=== PATIENT | female | born 1960 | race African-American/Black ===

== ENCOUNTER 2018-12-16 00:50 | Emergency (ER) | payer MEDICAID ==
[~2018-12-16] VITALS: Ht 170.2 cm; Wt 65.0 kg
[2018-12-16] MEDS ORDERED: KETOROLAC 30MG/ML VIAL IV STA (01:27)
[2018-12-16] MEDS ORDERED: METOCLOPRAMIDE HCL 10MG/2ML VIAL IV STA (01:27)
[2018-12-16] MEDS ORDERED: FAMOTIDINE 20MG/2ML VIAL IV STA (01:27)
[2018-12-16 02:12] LABS: HEMOGLOBIN. 10.5 g/dL (12.0-16.0); RED BLOOD CELL COUNT 3.44 mill/uL (4.2-5.4)
[2018-12-16 02:13] LABS: HEMATOCRIT. 29.6 % (36.0-48.0); MEAN CORPUSCULAR HEMOGLOBIN 30.5 pg (28.0-32.0); MEAN CORPUSCULAR VOLUME 85.9 fL (81.0-99.0)
[2018-12-16 02:14] LABS: MEAN PLATELET VOLUME 8.2 fl (7.4-10.4); PLATELET 220 x1000/uL (130-400); RED CELL DISTRIBUTION WIDTH 16.5 % (11.6-14.6)
[2018-12-16 02:27] LABS: CHLORIDE 103 mEq/L (98-107)
[2018-12-16 02:52] LABS: PLATELET ESTIMATE NORMAL
[2018-12-16] MEDS ORDERED: MAGNESIUM/ALUMINUM HYDROXIDE/SIMETHICONE 30ML UDC PO SCH (03:00)
[2018-12-16] MEDS ORDERED: VISCOUS LIDOCAINE 2% 15 ML UDC MM SCH (03:05)
[2018-12-16 03:11] LABS: CLARITY URINE CLOUDY (CLEAR); COLOR URINE YELLOW (YELLOW); KETONES URINE NEGATIVE (NEGATIVE); LEUKOCYTE ESTERASE URINE 2+ (NEGATIVE); NITRITE URINE POSITIVE (NEGATIVE); OCCULT BLOOD URINE 3+ (NEGATIVE); PROTEIN URINE NEGATIVE (NEGATIVE); SPECIFIC GRAVITY URINE 1.007 (1.005-1.030); UROBILINOGEN URINE 0.2 E.U./dL (0.2-1.0)
[2018-12-16] MEDS ORDERED: CEFTRIAXONE 1 G PREMIX 50 ML IV SCH (05:00)
[2018-12-16] MEDS ORDERED: ACETAMINOPHEN 500MG TABLET PO ONE (05:45)
[2018-12-16 05:56] VITALS: BP 171/104
== END 2018-12-16 05:56 | disposition home or self-care (01) ==
LOC: EDBEDREQ 01:28 → ER 01:40 → CANBEDREQ 06:53
DX: N39.0 Urinary tract infection, site not specified (principal); J45.909 Unspecified asthma, uncomplicated; E78.00 Pure hypercholesterolemia, unspecified; I10 Essential (primary) hypertension; Z88.0 Allergy status to penicillin
CPT/HCPCS: 36415; 80053; 81003; 83690; 85025; 87077; 87086; 87186; 96365; 96375; 99284; J0696; J1885; J2765; J3490

== ENCOUNTER 2021-12-03 04:05 | Inpatient (IN) | payer MEDICAID ==
[~2021-12-03] VITALS: Ht 180.3 cm; Wt 62.7 kg
[~2021-12-03 04:05] MED LIST: ALBU6.7H9 INH; ATOR20TA65 PO; BENA10TA74 PO; ERGO400T7 MT; FOLI-43 PO; HYDR25TA PO; SIMV-43 PO
[2021-12-03] MEDS ORDERED: ONDANSETRON HCL 4MG/2ML INJ IV STA (04:28)
[2021-12-03] MEDS ORDERED: FAMOTIDINE 20MG/2ML VIAL IV STA (04:28)
[2021-12-03] MEDS ORDERED: KETOROLAC 30MG/ML VIAL IV STA (04:28)
[2021-12-03] MEDS ORDERED: SODIUM CHLORIDE 0.9% 1,000 ML IV ONE (04:30)
[2021-12-03 05:26] LABS: CHLORIDE 90 mEq/L (98-107)
[2021-12-03 05:33] LABS: HEMATOCRIT. 37.8 % (36.0-48.0); HEMOGLOBIN. 13.7 g/dL (12.0-16.0); MEAN CORPUSCULAR HEMOGLOBIN 30.8 pg (28.0-32.0); MEAN CORPUSCULAR VOLUME 85.2 fL (81.0-99.0); MEAN PLATELET VOLUME 8.4 fl (7.4-10.4); PLATELET 298 x1000/uL (130-400); RED BLOOD CELL COUNT 4.43 mill/uL (4.2-5.4); RED CELL DISTRIBUTION WIDTH 16.7 % (11.6-14.6)
[2021-12-03 07:09] LABS: NUCLEATED RED BLOOD CELLS 1 /100 WBC; PLATELET ESTIMATE NORMAL
[2021-12-03] MEDS ORDERED: IOHEXOL-300 100 ML BOTTLE ONE (07:16)
[2021-12-03 08:08] LABS: CLARITY URINE CLEAR (CLEAR); COLOR URINE YELLOW (YELLOW); KETONES URINE TRACE (NEGATIVE); LEUKOCYTE ESTERASE URINE 1+ (NEGATIVE); NITRITE URINE NEGATIVE (NEGATIVE); OCCULT BLOOD URINE NEGATIVE (NEGATIVE); PROTEIN URINE NEGATIVE (NEGATIVE); SPECIFIC GRAVITY URINE 1.031 (1.005-1.030); UROBILINOGEN URINE 0.2 E.U./dL (0.2-1.0)
[2021-12-03] MEDS ORDERED: MORPHINE SULFATE 4 MG/ML CPJ (NOT FOR IM USE) IV ONE (09:00)
[2021-12-03] MEDS ORDERED: CEFTRIAXONE 1 G PREMIX 50 ML IV ONE (09:15)
[2021-12-03] MEDS ORDERED: ACETAMINOPHEN 325MG TABLET PO PRN (14:00)
[2021-12-03] MEDS ORDERED: KETOROLAC 30MG/ML VIAL IV PRN (14:00)
[2021-12-03] MEDS ORDERED: ONDANSETRON HCL 4MG/2ML INJ IV PRN (14:00)
[2021-12-03] MEDS ORDERED: KETOROLAC 15MG/ML VIAL IV PRN (14:52)
[2021-12-03] MEDS ORDERED: NALOXONE HCL 0.4MG/ML VIAL IV PRN (15:00)
[2021-12-03] MEDS: HYDROCODONE/ACETAMINOPHEN 5/325MG TABLET PO PRN ×2 (15:57→22:48)
[2021-12-03] MEDS: SODIUM CHLORIDE 0.9% 1,000 ML IV SCH (15:58)
[2021-12-03 23:30] VITALS: BP 137/91
[2021-12-04] VITALS: BP 137/91
[2021-12-04] MEDS ORDERED: TOPUD PO
[2021-12-04] MEDS ORDERED: GEMF600T90 PO
[2021-12-04] MEDS ORDERED: MELO-104 PO
[2021-12-04] MEDS ORDERED: HYDR25TA PO
[2021-12-04] MEDS ORDERED: NAPR375T5 PO
[2021-12-04] MEDS ORDERED: OMEP20TA2 PO
[2021-12-04] MEDS: SODIUM CHLORIDE 0.9% 1,000 ML IV SCH ×3 (00:12→20:50)
[2021-12-04 04:00] VITALS: BP 142/79
[2021-12-04 07:32] LABS: BASOPHILS % 0.5 % (0.0-2.0); EOSINOPHILS % 1.9 % (0.0-5.0); HEMATOCRIT. 31.3 % (36.0-48.0); HEMOGLOBIN. 11.3 g/dL (12.0-16.0); LYMPHOCYTES % 16.7 % (20.0-50.0); MEAN CORPUSCULAR HEMOGLOBIN 30.4 pg (28.0-32.0); MEAN CORPUSCULAR VOLUME 84.7 fL (81.0-99.0); MEAN PLATELET VOLUME 8.1 fl (7.4-10.4); MONOCYTES % 4.3 % (2.0-8.0); NEUTROPHILS % 76.6 % (40.0-76.0); PLATELET 183 x1000/uL (130-400); PROTHROMBIN TIME 10.8 sec (9.6-11.0); RED CELL DISTRIBUTION WIDTH 16.2 % (11.6-14.6)
[2021-12-04 07:41] LABS: CHLORIDE 105 mEq/L (98-107)
[2021-12-04 07:45] LABS: AMYLASE 71 IU/L (25-115)
[2021-12-04 08:00] VITALS: BP 145/94
[2021-12-04 09:13] LABS: HEPATITIS B SURFACE ANTIGEN NEGATIVE
[2021-12-04] MEDS: KCL 20MEQ/100ML PREMIX 100 ML IV SCH ×2 (11:00→13:00)
[2021-12-04 12:00] VITALS: BP 135/94
[2021-12-04] MEDS ORDERED: PROPOFOL 200MG/20ML VIAL IV ONE ×2 (13:38→14:09)
[2021-12-04] MEDS ORDERED: FENTANYL CITRATE/PF 50MCG/ML 2ML VIAL ONE (13:38)
[2021-12-04] MEDS ORDERED: MIDAZOLAM HCL 2 MG/2 ML VIAL ONE (13:39)
[2021-12-04] MEDS ORDERED: ONDANSETRON HCL 4MG/2ML INJ ONE (13:41)
[2021-12-04] MEDS ORDERED: DEXAMETHASONE 4MG/ML 1ML VIAL ONE (13:41)
[2021-12-04] MEDS ORDERED: MEPERIDINE HCL/PF 25MG/ML CPJ IV PRN (14:30)
[2021-12-04] MEDS ORDERED: LABETALOL 5MG/ML SYR 20 MG/4 ML SYRINGE IV PRN (14:30)
[2021-12-04] MEDS ORDERED: HYDROMORPHONE HCL/PF 2MG/ML CPJ IV PRN (14:30)
[2021-12-04] MEDS ORDERED: ONDANSETRON HCL 4MG/2ML INJ IV PRN (14:30)
[2021-12-04] MEDS ORDERED: GENTAMICIN 80MG PREMIX 100 ML IV SCH (14:30)
[2021-12-04 16:00] VITALS: BP 123/77
[2021-12-04] MEDS ORDERED: GENTAMICIN 120MG PREMIX 100 ML IV SCH (16:30)
[2021-12-04] MEDS: HYDROCODONE/ACETAMINOPHEN 5/325MG TABLET PO PRN (18:30)
[2021-12-04 18:57] LABS: *AMPHETAMINES SCREEN URINE NEGATIVE (NEGATIVE); *BARBITURATES SCREEN URINE NEGATIVE (NEGATIVE); *BENZODIAZEPINES SCREEN URINE PRESUMTIVE POSITIVE (NEGATIVE); *COCAINE SCREEN URINE NEGATIVE (NEGATIVE); METHADONE URINE SCREEN NEGATIVE (NEGATIVE); OPIATES URINE SCREEN PRESUMTIVE POSITIVE (NEGATIVE); PHENCYCLIDINE URINE SCREEN NEGATIVE (NEGATIVE)
[2021-12-04 18:58] LABS: CANNABINOID URINE SCREEN NEGATIVE (NEGATIVE)
[2021-12-04 20:00] VITALS: BP 121/81
[2021-12-04] MEDS ORDERED: CARISOPRODOL 350 MG TABLET PO PRN (23:00)
[2021-12-05] VITALS: BP 118/73
[2021-12-05 04:00] VITALS: BP 144/73
[2021-12-05] MEDS ORDERED: GENTAMICIN 100MG PREMIX 50 ML IV SCH (05:00)
[2021-12-05] MEDS: SODIUM CHLORIDE 0.9% 1,000 ML IV SCH (05:19)
[2021-12-05 06:35] LABS: BASOPHILS % 0.4 % (0.0-2.0); HEMATOCRIT. 28.8 % (36.0-48.0); MEAN CORPUSCULAR HEMOGLOBIN 30.4 pg (28.0-32.0); MEAN CORPUSCULAR VOLUME 87.3 fL (81.0-99.0); MEAN PLATELET VOLUME 8.5 fl (7.4-10.4); NEUTROPHILS % 87.6 % (40.0-76.0); PLATELET 149 x1000/uL (130-400); RED CELL DISTRIBUTION WIDTH 16.2 % (11.6-14.6)
[2021-12-05 06:45] LABS: CHLORIDE 107 mEq/L (98-107)
[2021-12-05 06:54] LABS: AMYLASE 76 IU/L (25-115)
[2021-12-05 08:00] VITALS: BP 166/98
[2021-12-05] MEDS: HYDROCODONE/ACETAMINOPHEN 5/325MG TABLET PO PRN (08:25)
[2021-12-05] MEDS ORDERED: AMLODIPINE 10MG TABLET PO SCH (09:00)
[2021-12-05 12:00] VITALS: BP 147/100
[2021-12-05 13:47] VITALS: BP 18/147
== END 2021-12-05 14:20 | disposition home or self-care (01) | DRG 463 ==
LOC: ER 04:05 → EDBEDREQTM 08:45 → EDBEDREQ 08:45 → 7EST 09:08 → EDBEDREQTM 09:10 → EDBEDREQ 09:10 → ENRESERV 21:55
PROVIDERS: ADMIT Internal Medicine; ATTEND Internal Medicine
PROC: 0TF78ZZ Fragmentation in Left Ureter, Via Natural or Artificial Opening Endoscopic (ICD-10-PCS; principal; 2021-12-04)
PROC: 0T778DZ Dilation of Left Ureter with Intraluminal Device, Via Natural or Artificial Opening Endoscopic (ICD-10-PCS; 2021-12-04)
PROC: BT171ZZ Fluoroscopy of Left Ureter using Low Osmolar Contrast (ICD-10-PCS; 2021-12-04)
DX: N13.6 Pyonephrosis (principal); K85.20 Alcohol induced acute pancreatitis without necrosis or infection; E87.8 Other disorders of electrolyte and fluid balance, not elsewhere classified; E87.1 Hypo-osmolality and hyponatremia; I10 Essential (primary) hypertension; J45.909 Unspecified asthma, uncomplicated; K82.8 Other specified diseases of gallbladder; Z20.822 Contact with and (suspected) exposure to COVID-19; D64.9 Anemia, unspecified; F10.10 Alcohol abuse, uncomplicated; Y90.9 Presence of alcohol in blood, level not specified; M06.9 Rheumatoid arthritis, unspecified; D25.9 Leiomyoma of uterus, unspecified; E78.5 Hyperlipidemia, unspecified; K76.0 Fatty (change of) liver, not elsewhere classified; Z87.891 Personal history of nicotine dependence; Z88.0 Allergy status to penicillin; Z79.899 Other long term (current) drug therapy
CPT/HCPCS: 36415; 74018; 74177; 76000; 76700; 80048; 80053; 80076; 80305; 81003; 82150; 85025; 86705; 86709; 86803; 87340; 87426; 93005; 99285; C1769; C2617; J0696; J1100; J1580; J1885; J2250; J2270; J2405; J2704; J3010; J3480; J3490; J7030; Q9967

== ENCOUNTER 2022-06-11 19:54 | Inpatient (IN) | payer MEDICAID ==
[~2022-06-11] VITALS: Ht 177.8 cm; Wt 60.1 kg
[~2022-06-11 19:54] MED LIST changes: +ALBU6.7H3 INH; -ALBU6.7H9 INH; -BENA10TA74 PO; +BENA40TA91 PO; +GEMF600T90 PO; +LEVO-65 MT; +MELO-104 PO; +NAPR375T5 PO; +OMEP20TA23 PO; +TOPUD PO
[2022-06-11] MEDS ORDERED: SODIUM CHLORIDE 0.9% 1,000 ML IV ONE (20:45)
[2022-06-11 20:58] LABS: HEMATOCRIT. 31.7 % (36.0-48.0); MEAN CORPUSCULAR HEMOGLOBIN 32.9 pg (28.0-32.0); MEAN CORPUSCULAR VOLUME 86.7 fL (81.0-99.0); MEAN PLATELET VOLUME 8.6 fl (7.4-10.4); PLATELET 370 x1000/uL (130-400); RED BLOOD CELL COUNT 3.66 mill/uL (4.2-5.4); RED CELL DISTRIBUTION WIDTH 17.9 % (11.6-14.6)
[2022-06-11 21:02] LABS: CHLORIDE 60 mEq/L (98-107)
[2022-06-11 21:13] LABS: ETHANOL BLOOD < 10 mg/dL
[2022-06-11 21:17] LABS: *AMPHETAMINES SCREEN URINE NEGATIVE (NEGATIVE); *BARBITURATES SCREEN URINE NEGATIVE (NEGATIVE); *BENZODIAZEPINES SCREEN URINE NEGATIVE (NEGATIVE); *COCAINE SCREEN URINE NEGATIVE (NEGATIVE); CANNABINOID URINE SCREEN NEGATIVE (NEGATIVE); METHADONE URINE SCREEN NEGATIVE (NEGATIVE); OPIATES URINE SCREEN NEGATIVE (NEGATIVE); PHENCYCLIDINE URINE SCREEN NEGATIVE (NEGATIVE)
[2022-06-11 21:21] LABS: CLARITY URINE CLEAR (CLEAR); COLOR URINE YELLOW (YELLOW)
[2022-06-11 21:24] LABS: KETONES URINE NEGATIVE (NEGATIVE); LEUKOCYTE ESTERASE URINE 1+ (NEGATIVE); UROBILINOGEN URINE 0.2 E.U./dL (0.2-1.0)
[2022-06-11 21:25] LABS: NITRITE URINE NEGATIVE (NEGATIVE); OCCULT BLOOD URINE NEGATIVE (NEGATIVE); SPECIFIC GRAVITY URINE 1.015 (1.005-1.030)
[2022-06-11 21:26] LABS: PROTEIN URINE TRACE (NEGATIVE)
[2022-06-11 21:52] LABS: PLATELET ESTIMATE NORMAL
[2022-06-11] MEDS ORDERED: SODIUM CHLORIDE 3% 500ML IV SOLN IV NR (22:00)
[2022-06-11] MEDS ORDERED: SODIUM CHLORIDE 3% 150 ML IV NR (22:15)
[2022-06-11 23:53] LABS: CHLORIDE 67 mEq/L (98-107)
[2022-06-12] VITALS (61 sets, daily range): BP systolic 48–174; BP diastolic 20–104
[2022-06-12] MEDS ORDERED: CEFTRIAXONE 1 G PREMIX 50 ML IV ONE (01:15)
[2022-06-12] MEDS ORDERED: AZITHROMYCIN 500 MG in DEXT 5% WATER 250 ML IV SCH ×2 (01:15→22:00)
[2022-06-12] MEDS ORDERED: ONDANSETRON HCL 4MG/2ML INJ IV PRN (05:15)
[2022-06-12] MEDS ORDERED: SODIUM CHLORIDE 0.9% 1,000 ML IV SCH (05:15)
[2022-06-12] MEDS ORDERED: CEFTRIAXONE 1 G PREMIX 50 ML IV SCH (05:15)
[2022-06-12] MEDS ORDERED: NOREPINEPHRINE 32 MG in DEXT 5% WATER 218 ML IV PRN (05:15)
[2022-06-12 05:25] LABS: HEMATOCRIT. 31.1 % (36.0-48.0); MEAN CORPUSCULAR VOLUME 87.4 fL (81.0-99.0); MEAN PLATELET VOLUME 9.1 fl (7.4-10.4); PLATELET 360 x1000/uL (130-400); RED BLOOD CELL COUNT 3.56 mill/uL (4.2-5.4); RED CELL DISTRIBUTION WIDTH 17.8 % (11.6-14.6)
[2022-06-12 05:35] LABS: CHLORIDE 69 mEq/L (98-107)
[2022-06-12] MEDS ORDERED: POTASSIUM CHLORIDE INJ 40 MEQ in DEXT 5% WATER 500 ML IV ONE (07:00)
[2022-06-12 07:19] LABS: HEMOGLOBIN. 11.4 g/dL (12.0-16.0)
[2022-06-12] MEDS ORDERED: PANTOPRAZOLE 40MG DR TABLET PO SCH (09:00)
[2022-06-12] MEDS: KCL 20MEQ/100ML X 2 FOR TOTAL KCL 40MEQ/200ML IV SCH ×2 (09:03→11:47)
[2022-06-12] MEDS: ENOXAPARIN 40MG/0.4ML SYR SUBCUT SCH (09:04)
[2022-06-12] MEDS ORDERED: POTASSIUM CHLORIDE 20MEQ TABLET SR PO NR (11:00)
[2022-06-12 13:59] LABS: SODIUM URINE RANDOM 29 mEq/L
[2022-06-12 17:50] LABS: CHLORIDE 92 mEq/L (98-107)
[2022-06-12] MEDS: DEXTROSE 5% WATER 1,000 ML IV SCH (19:54)
[2022-06-12] MEDS ORDERED: CEFTRIAXONE 1,000 MG in DEXTROSE 5% WATER 50 ML IV SCH (20:00)
[2022-06-13] VITALS (46 sets, daily range): BP systolic 87–185; BP diastolic 26–115
[2022-06-13 05:39] LABS: HEMATOCRIT. 26.5 % (36.0-48.0); MEAN CORPUSCULAR VOLUME 90.6 fL (81.0-99.0); MEAN PLATELET VOLUME 8.8 fl (7.4-10.4); PLATELET 281 x1000/uL (130-400); RED BLOOD CELL COUNT 2.93 mill/uL (4.2-5.4); RED CELL DISTRIBUTION WIDTH 17.2 % (11.6-14.6)
[2022-06-13 05:43] LABS: CHLORIDE 95 mEq/L (98-107)
[2022-06-13 05:55] LABS: HDL CHOLESTEROL 120 mg/dL (40-59); LDL CHOLESTEROL 166 mg/dL (5-100); PHOSPHORUS 1.2 mg/dL (2.5-4.9)
[2022-06-13 07:51] LABS: HEMOGLOBIN. 9.5 g/dL (12.0-16.0); MEAN CORPUSCULAR HEMOGLOBIN 32.4 pg (28.0-32.0)
[2022-06-13] MEDS ORDERED: POTASSIUM CHLORIDE 20MEQ TABLET SR PO SCH (08:00)
[2022-06-13] MEDS ORDERED: MAGNESIUM 2 G PREMIX 50 ML IV SCH (08:30)
[2022-06-13] MEDS: IPRATROPIUM/ALBUTEROL 0.5-3(2.5)MG/3ML NEB HHN SCH ×5 (08:51→23:30)
[2022-06-13] MEDS ORDERED: POTASSIUM PHOS,M-BASIC-D-BASIC 20 MMOL in DEXT 5% WATER 243.3333 ML IV SCH (09:00)
[2022-06-13] MEDS: THIAMINE HCL 100MG TABLET PO SCH (09:23)
[2022-06-13] MEDS: ENOXAPARIN 40MG/0.4ML SYR SUBCUT SCH (09:23)
[2022-06-13 10:24] LABS: PLATELET ESTIMATE NORMAL
[2022-06-13] MEDS ORDERED: DESMOPRESSIN ACETATE 4MCG/ML AMP IV NR (16:00)
[2022-06-13] MEDS: DEXTROSE 5% WATER 1,000 ML IV SCH (16:13)
[2022-06-14] VITALS: BP 131/60
[2022-06-14] MEDS: DEXTROSE 5% WATER 1,000 ML IV SCH ×2 (01:05→12:42)
[2022-06-14] MEDS: IPRATROPIUM/ALBUTEROL 0.5-3(2.5)MG/3ML NEB HHN SCH ×4 (03:54→20:48)
[2022-06-14 04:00] VITALS: BP 130/65
[2022-06-14 08:00] VITALS: BP 130/96
[2022-06-14] MEDS: ENOXAPARIN 40MG/0.4ML SYR SUBCUT SCH (08:46)
[2022-06-14] MEDS: THIAMINE HCL 100MG TABLET PO SCH (08:46)
[2022-06-14 12:00] VITALS: BP 143/82
[2022-06-14 16:00] VITALS: BP 114/67
[2022-06-14 16:17] LABS: HEMATOCRIT. 26.3 % (36.0-48.0); HEMOGLOBIN. 9.4 g/dL (12.0-16.0); MEAN CORPUSCULAR HEMOGLOBIN 32.6 pg (28.0-32.0); MEAN CORPUSCULAR VOLUME 91.2 fL (81.0-99.0); MEAN PLATELET VOLUME 8.9 fl (7.4-10.4); PLATELET 263 x1000/uL (130-400); RED BLOOD CELL COUNT 2.88 mill/uL (4.2-5.4)
[2022-06-14 16:26] LABS: CHLORIDE 89 mEq/L (98-107)
[2022-06-14 16:30] LABS: PHOSPHORUS 1.9 mg/dL (2.5-4.9)
[2022-06-14 20:00] VITALS: BP 128/72
[2022-06-15] VITALS: BP 130/80
[2022-06-15 00:09] LABS: PLATELET ESTIMATE NORMAL
[2022-06-15] MEDS: IPRATROPIUM/ALBUTEROL 0.5-3(2.5)MG/3ML NEB HHN SCH ×5 (01:52→21:07)
[2022-06-15 04:00] VITALS: BP 120/74
[2022-06-15 06:10] LABS: HEMATOCRIT. 29.1 % (36.0-48.0); HEMOGLOBIN. 10.3 g/dL (12.0-16.0); MEAN CORPUSCULAR HEMOGLOBIN 32.3 pg (28.0-32.0); MEAN CORPUSCULAR VOLUME 90.8 fL (81.0-99.0); MEAN PLATELET VOLUME 9.4 fl (7.4-10.4); PLATELET 256 x1000/uL (130-400); RED CELL DISTRIBUTION WIDTH 17.2 % (11.6-14.6)
[2022-06-15 08:00] VITALS: BP 128/78
[2022-06-15 08:23] LABS: CHLORIDE 75 mEq/L (98-107)
[2022-06-15 08:27] LABS: PHOSPHORUS 2.4 mg/dL (2.5-4.9)
[2022-06-15] MEDS: ENOXAPARIN 40MG/0.4ML SYR SUBCUT SCH (10:03)
[2022-06-15] MEDS: THIAMINE HCL 100MG TABLET PO SCH (10:04)
[2022-06-15 12:00] VITALS: BP 124/76
[2022-06-15 12:08] LABS: PLATELET ESTIMATE NORMAL
[2022-06-15] MEDS: SODIUM CHLORIDE 0.9% 1,000 ML IV SCH (12:08)
[2022-06-15] MEDS ORDERED: CEFTRIAXONE 1 G PREMIX 50 ML IV SCH (12:15)
[2022-06-15] MEDS ORDERED: MAGNESIUM 2 G PREMIX 50 ML IV NR (13:30)
[2022-06-15] MEDS: CEFTRIAXONE 1,000 MG in DEXTROSE 5% WATER 50 ML IV SCH (15:06)
[2022-06-15 16:00] VITALS: BP 157/91
[2022-06-15 16:43] LABS: CHLORIDE 76 mEq/L (98-107)
[2022-06-15 20:00] VITALS: BP 119/69
[2022-06-15] MEDS ORDERED: THIAMINE HCL 100 MG in SODIUM CHLORIDE 0.9% 49 ML IV NR (22:00)
[2022-06-16] VITALS: BP 135/86
[2022-06-16] MEDS: IPRATROPIUM/ALBUTEROL 0.5-3(2.5)MG/3ML NEB HHN SCH ×6 (01:04→21:11)
[2022-06-16 01:57] LABS: CLARITY URINE CLEAR (CLEAR); COLOR URINE YELLOW (YELLOW); KETONES URINE 2+ (NEGATIVE); LEUKOCYTE ESTERASE URINE 2+ (NEGATIVE); NITRITE URINE NEGATIVE (NEGATIVE); OCCULT BLOOD URINE TRACE (NEGATIVE); PH URINE 5.5 (4.5-8.0); PROTEIN URINE NEGATIVE (NEGATIVE); SPECIFIC GRAVITY URINE 1.005 (1.005-1.030); UROBILINOGEN URINE 0.2 E.U./dL (0.2-1.0)
[2022-06-16 03:21] VITALS: BP 113/69
[2022-06-16] MEDS: SODIUM CHLORIDE 0.9% 1,000 ML IV SCH ×3 (04:57→13:22)
[2022-06-16 07:13] LABS: HEMATOCRIT. 26.9 % (36.0-48.0); HEMOGLOBIN. 9.5 g/dL (12.0-16.0); MEAN CORPUSCULAR HEMOGLOBIN 32.3 pg (28.0-32.0); MEAN CORPUSCULAR VOLUME 91.6 fL (81.0-99.0); MEAN PLATELET VOLUME 9.4 fl (7.4-10.4); PLATELET 243 x1000/uL (130-400); RED BLOOD CELL COUNT 2.94 mill/uL (4.2-5.4); RED CELL DISTRIBUTION WIDTH 17.2 % (11.6-14.6)
[2022-06-16 08:00] VITALS: BP 136/81
[2022-06-16] MEDS: THIAMINE HCL 100MG TABLET PO SCH (08:14)
[2022-06-16] MEDS: ENOXAPARIN 40MG/0.4ML SYR SUBCUT SCH (08:14)
[2022-06-16 09:39] LABS: CHLORIDE 81 mEq/L (98-107)
[2022-06-16 09:49] LABS: PHOSPHORUS 2.7 mg/dL (2.5-4.9)
[2022-06-16 12:00] VITALS: BP 147/93
[2022-06-16] MEDS: CEFTRIAXONE 1,000 MG in DEXTROSE 5% WATER 50 ML IV SCH (13:21)
[2022-06-16 13:31] LABS: PLATELET ESTIMATE NORMAL
[2022-06-16] MEDS: AZITHROMYCIN 500 MG in DEXT 5% WATER 250 ML IV SCH (14:37)
[2022-06-16 16:00] VITALS: BP 112/61
[2022-06-16 20:00] VITALS: BP 129/76
[2022-06-16] MEDS ORDERED: VANCOMYCIN 1,750 MG in DEXT 5% WATER 500 ML IV SCH (21:00)
[2022-06-17] VITALS (9 sets, daily range): BP systolic 102–154; BP diastolic 65–91
[2022-06-17] MEDS: IPRATROPIUM/ALBUTEROL 0.5-3(2.5)MG/3ML NEB HHN SCH ×6 (00:30→21:40)
[2022-06-17] MEDS: GUAIFENESIN/DM 600MG/30MG ER TAB 12HR PO PRN ×2 (05:22→22:33)
[2022-06-17] MEDS: SODIUM CHLORIDE 0.9% 1,000 ML IV SCH (05:23)
[2022-06-17 06:57] LABS: HEMOGLOBIN. 7.1 g/dL (12.0-16.0); MEAN CORPUSCULAR VOLUME 91.9 fL (81.0-99.0); RED BLOOD CELL COUNT 2.14 mill/uL (4.2-5.4); RED CELL DISTRIBUTION WIDTH 16.8 % (11.6-14.6)
[2022-06-17] MEDS ORDERED: LIDOCAINE HCL/PF 1% 10 MG/ML 5ML VIAL ONE (07:39)
[2022-06-17 07:54] LABS: CHLORIDE 91 mEq/L (98-107)
[2022-06-17 07:57] LABS: HEMATOCRIT. 19.7 % (36.0-48.0)
[2022-06-17 08:02] LABS: PHOSPHORUS 1.8 mg/dL (2.5-4.9)
[2022-06-17 08:53] LABS: PLATELET 287 x1000/uL (130-400)
[2022-06-17 08:57] LABS: PLATELET ESTIMATE NORMAL
[2022-06-17] MEDS ORDERED: VANCOMYCIN 1.25GM PMX (XELLIA) 250 ML IV SCH (09:00)
[2022-06-17] MEDS: THIAMINE HCL 100MG TABLET PO SCH (09:40)
[2022-06-17] MEDS ORDERED: MAGNESIUM 2 G PREMIX 50 ML IV NR (11:00)
[2022-06-17] MEDS ORDERED: SODIUM PHOS,M-BASIC-D-BASIC 15 MM in DEXT 5% WATER 245 ML IV NR (11:30)
[2022-06-17 14:38] LABS: BG BASE EXCESS -2.7 mmol/L (-2.0-2.0); BG CARBOXYHEMOGLOBIN 0.4 % (0.5-1.5); BG DEOXYHEMOGLOBIN 12.4 % (0.0-5.0); BG FRACTION INSPIRED OXYGEN 36; BG HCO3 ACT 20.4 mmol/L (22.0-26.0); BG METHEMOGLOBIN 0.3 % (0.0-1.5); BG OXYGEN SATURATION 87.5 % (92.0-98.5); BG OXYHEMOGLOBIN 86.9 % (94.0-97.0); BG PCO2 28.3 mmHg (35.0-45.0); BG PH 7.475 (7.350-7.450); BG PO2 52.6 mmHg (75.0-100.0); BG SAMPLE SITE RIGHT RADIAL; BG VENT MODE NASAL CANNULA
[2022-06-17] MEDS: AZITHROMYCIN 500 MG in DEXT 5% WATER 250 ML IV SCH (14:56)
[2022-06-17] MEDS: CEFTRIAXONE 1,000 MG in DEXTROSE 5% WATER 50 ML IV SCH (14:56)
[2022-06-17 15:09] LABS: TOTAL IRON BINDING CAPACITY 261 ug/dL (250-450)
[2022-06-17 15:39] LABS: VITAMIN B12 SERUM 584 pg/mL (211-911)
[2022-06-17] MEDS: VANCOMYCIN 1G PREMIX 200 ML IV SCH ×2 (15:59→22:33)
[2022-06-17] MEDS: PANTOPRAZOLE SODIUM 40 MG/VIAL IV SCH (16:14)
[2022-06-17 16:52] LABS: FERRITIN 1564 ng/mL (10-291)
[2022-06-17] MEDS ORDERED: ACETYLCYSTEINE 100MG/ML 10% VIAL 4ML INH SCH (22:00)
[2022-06-18] VITALS: BP 100/72
[2022-06-18] MEDS: IPRATROPIUM/ALBUTEROL 0.5-3(2.5)MG/3ML NEB HHN SCH ×6 (00:47→21:46)
[2022-06-18 04:00] VITALS: BP 150/95
[2022-06-18] MEDS: SODIUM CHLORIDE 0.9% 1,000 ML IV SCH (06:26)
[2022-06-18 07:36] LABS: BASOPHILS % 0.4 % (0.0-2.0); EOSINOPHILS % 2.3 % (0.0-5.0); HEMATOCRIT. 23.5 % (36.0-48.0); HEMOGLOBIN. 8.3 g/dL (12.0-16.0); LYMPHOCYTES % 8.6 % (20.0-50.0); MEAN CORPUSCULAR HEMOGLOBIN 31.6 pg (28.0-32.0); MEAN CORPUSCULAR VOLUME 88.9 fL (81.0-99.0); MEAN PLATELET VOLUME 8.4 fl (7.4-10.4); MONOCYTES % 5.4 % (2.0-8.0); NEUTROPHILS % 83.3 % (40.0-76.0); PLATELET 268 x1000/uL (130-400); RED BLOOD CELL COUNT 2.64 mill/uL (4.2-5.4); RED CELL DISTRIBUTION WIDTH 16.8 % (11.6-14.6)
[2022-06-18 08:00] VITALS: BP 139/83
[2022-06-18] MEDS: THIAMINE HCL 100MG TABLET PO SCH (09:07)
[2022-06-18] MEDS: VANCOMYCIN 1G PREMIX 200 ML IV SCH (09:07)
[2022-06-18] MEDS: PANTOPRAZOLE SODIUM 40 MG/VIAL IV SCH (09:07)
[2022-06-18 10:17] LABS: CHLORIDE 92 mEq/L (98-107)
[2022-06-18 10:45] LABS: PHOSPHORUS 2.8 mg/dL (2.5-4.9)
[2022-06-18 12:00] VITALS: BP 127/95
[2022-06-18] MEDS ORDERED: FUROSEMIDE 20MG/2ML VIAL IVP NR (12:00)
[2022-06-18] MEDS ORDERED: VANCOMYCIN 750MG PREMIX 150 ML IV SCH (12:30)
[2022-06-18] MEDS: AZITHROMYCIN 500 MG in DEXT 5% WATER 250 ML IV SCH (14:02)
[2022-06-18] MEDS: CEFTRIAXONE 1,000 MG in DEXTROSE 5% WATER 50 ML IV SCH (14:02)
[2022-06-18 16:00] VITALS: BP 128/80
[2022-06-18 20:00] VITALS: BP 150/83
[2022-06-18] MEDS: VANCOMYCIN 750MG PREMIX 150 ML IV SCH (21:52)
[2022-06-18] MEDS: GUAIFENESIN/DM 600MG/30MG ER TAB 12HR PO PRN (22:05)
[2022-06-19] VITALS: BP 142/84
[2022-06-19] MEDS: ACETYLCYSTEINE 200MG/ML 20% VIAL 4ML INH SCH ×3 (00:47→16:33)
[2022-06-19 04:00] VITALS: BP 146/95
[2022-06-19] MEDS: IPRATROPIUM/ALBUTEROL 0.5-3(2.5)MG/3ML NEB HHN SCH ×6 (04:00→21:26)
[2022-06-19 07:52] LABS: CHLORIDE 97 mEq/L (98-107)
[2022-06-19 08:00] VITALS: BP 161/106
[2022-06-19 08:33] LABS: BASOPHILS % 0.2 % (0.0-2.0); EOSINOPHILS % 3.4 % (0.0-5.0); HEMATOCRIT. 24.7 % (36.0-48.0); HEMOGLOBIN. 8.8 g/dL (12.0-16.0); LYMPHOCYTES % 9.2 % (20.0-50.0); MEAN CORPUSCULAR VOLUME 90.2 fL (81.0-99.0); MEAN PLATELET VOLUME 7.8 fl (7.4-10.4); MONOCYTES % 5.5 % (2.0-8.0); NEUTROPHILS % 81.7 % (40.0-76.0); PLATELET 302 x1000/uL (130-400); RED BLOOD CELL COUNT 2.74 mill/uL (4.2-5.4); RED CELL DISTRIBUTION WIDTH 17.6 % (11.6-14.6)
[2022-06-19] MEDS: THIAMINE HCL 100MG TABLET PO SCH (09:50)
[2022-06-19] MEDS: PANTOPRAZOLE SODIUM 40 MG/VIAL IV SCH (09:50)
[2022-06-19] MEDS: VANCOMYCIN 750MG PREMIX 150 ML IV SCH ×2 (10:14→21:35)
[2022-06-19] MEDS ORDERED: LACTULOSE 20G/30ML UDC PO NR (11:30)
[2022-06-19] MEDS: DOCUSATE SODIUM 250MG CAPSULE PO SCH (11:45)
[2022-06-19 12:00] VITALS: BP 140/78
[2022-06-19] MEDS: METHYLPREDNISOLONE SOD SUCC 40 MG/ML VIAL IV SCH ×2 (13:27→21:36)
[2022-06-19] MEDS: CEFTRIAXONE 1,000 MG in DEXTROSE 5% WATER 50 ML IV SCH (13:27)
[2022-06-19] MEDS: AZITHROMYCIN 500 MG in DEXT 5% WATER 250 ML IV SCH (13:27)
[2022-06-19 16:00] VITALS: BP 159/105
[2022-06-19] MEDS: AMLODIPINE 10MG TABLET PO SCH (17:55)
[2022-06-19] MEDS ORDERED: FUROSEMIDE 40MG/4ML VIAL IVP NR (19:45)
[2022-06-19 20:00] VITALS: BP 150/90
[2022-06-19] MEDS: HYDRALAZINE HCL 50MG TABLET PO SCH (21:35)
[2022-06-19] MEDS: LORAZEPAM 2MG/ML CPJ IV PRN (21:36)
[2022-06-20] VITALS: BP 140/85
[2022-06-20] MEDS: IPRATROPIUM/ALBUTEROL 0.5-3(2.5)MG/3ML NEB HHN SCH ×6 (01:22→20:45)
[2022-06-20] MEDS: ACETYLCYSTEINE 200MG/ML 20% VIAL 4ML INH SCH ×4 (01:23→20:45)
[2022-06-20 04:00] VITALS: BP 155/85
[2022-06-20] MEDS: METHYLPREDNISOLONE SOD SUCC 40 MG/ML VIAL IV SCH ×3 (04:03→20:13)
[2022-06-20 08:00] VITALS: BP 146/90
[2022-06-20] MEDS ORDERED: AZITHROMYCIN 500 MG TABLET PO SCH (09:00)
[2022-06-20] MEDS: THIAMINE HCL 100MG TABLET PO SCH (10:00)
[2022-06-20] MEDS: VANCOMYCIN 750MG PREMIX 150 ML IV SCH ×2 (10:01→21:08)
[2022-06-20] MEDS: HYDRALAZINE HCL 50MG TABLET PO SCH ×2 (10:01→20:14)
[2022-06-20] MEDS: DOCUSATE SODIUM 250MG CAPSULE PO SCH (10:01)
[2022-06-20] MEDS: AMLODIPINE 10MG TABLET PO SCH (10:01)
[2022-06-20] MEDS: PANTOPRAZOLE SODIUM 40 MG/VIAL IV SCH (10:01)
[2022-06-20 10:34] LABS: CHLORIDE 94 mEq/L (98-107)
[2022-06-20 10:48] LABS: PHOSPHORUS 4.4 mg/dL (2.5-4.9)
[2022-06-20 12:12] VITALS: BP 143/95
[2022-06-20] MEDS: CEFTRIAXONE 1,000 MG in DEXTROSE 5% WATER 50 ML IV SCH (14:16)
[2022-06-20 16:12] VITALS: BP 129/83
[2022-06-20 20:00] VITALS: BP 130/80
[2022-06-20] MEDS: LORAZEPAM 2MG/ML CPJ IV PRN (20:13)
[2022-06-21] VITALS: BP 134/88
[2022-06-21] MEDS: IPRATROPIUM/ALBUTEROL 0.5-3(2.5)MG/3ML NEB HHN SCH ×6 (00:31→21:00)
[2022-06-21 04:00] VITALS: BP 150/90
[2022-06-21] MEDS: METHYLPREDNISOLONE SOD SUCC 40 MG/ML VIAL IV SCH ×2 (04:04→13:06)
[2022-06-21 08:00] VITALS: BP 143/89
[2022-06-21 08:39] LABS: HEMATOCRIT. 24.1 % (36.0-48.0); HEMOGLOBIN. 8.6 g/dL (12.0-16.0); MEAN CORPUSCULAR HEMOGLOBIN 32.3 pg (28.0-32.0); MEAN PLATELET VOLUME 7.8 fl (7.4-10.4); PLATELET 378 x1000/uL (130-400); RED BLOOD CELL COUNT 2.67 mill/uL (4.2-5.4); RED CELL DISTRIBUTION WIDTH 17.3 % (11.6-14.6)
[2022-06-21 09:01] LABS: CHLORIDE 100 mEq/L (98-107)
[2022-06-21] MEDS: PANTOPRAZOLE SODIUM 40 MG/VIAL IV SCH (09:50)
[2022-06-21] MEDS: THIAMINE HCL 100MG TABLET PO SCH (09:51)
[2022-06-21] MEDS: AMLODIPINE 10MG TABLET PO SCH (09:51)
[2022-06-21] MEDS: HYDRALAZINE HCL 50MG TABLET PO SCH ×2 (09:51→20:35)
[2022-06-21] MEDS: DOCUSATE SODIUM 250MG CAPSULE PO SCH (09:53)
[2022-06-21] MEDS: VANCOMYCIN 750MG PREMIX 150 ML IV SCH ×2 (10:39→21:01)
[2022-06-21 11:34] LABS: PLATELET ESTIMATE NORMAL
[2022-06-21 12:00] VITALS: BP 127/71
[2022-06-21] MEDS ORDERED: MAGNESIUM 2 G PREMIX 50 ML IV NR (13:00)
[2022-06-21] MEDS ORDERED: POTASSIUM CHLORIDE 20MEQ TABLET SR PO NR (13:00)
[2022-06-21 16:00] VITALS: BP 131/81
[2022-06-21] MEDS: ACETYLCYSTEINE 200MG/ML 20% VIAL 4ML INH SCH (16:32)
[2022-06-21 20:00] VITALS: BP 140/80
[2022-06-21] MEDS ORDERED: CEFTRIAXONE 1,000 MG in DEXTROSE 5% WATER 50 ML IV SCH (20:00)
[2022-06-21] MEDS: LORAZEPAM 2MG/ML CPJ IV PRN (20:35)
[2022-06-21] MEDS: CEFTRIAXONE 1,000 MG in DEXTROSE 5% WATER 50 ML IV SCH (23:59)
[2022-06-22] VITALS: BP 145/75
[2022-06-22] MEDS: METHYLPREDNISOLONE SOD SUCC 40 MG/ML VIAL IV SCH ×2 (00:02→13:02)
[2022-06-22] MEDS: IPRATROPIUM/ALBUTEROL 0.5-3(2.5)MG/3ML NEB HHN SCH ×6 (01:50→20:43)
[2022-06-22] MEDS: ACETYLCYSTEINE 200MG/ML 20% VIAL 4ML INH SCH ×3 (01:57→21:00)
[2022-06-22] MEDS: LORAZEPAM 2MG/ML CPJ IV PRN (02:54)
[2022-06-22 04:00] VITALS: BP 158/95
[2022-06-22 08:00] VITALS: BP 172/105
[2022-06-22] MEDS: DOCUSATE SODIUM 250MG CAPSULE PO SCH (08:47)
[2022-06-22] MEDS: PANTOPRAZOLE SODIUM 40 MG/VIAL IV SCH (08:47)
[2022-06-22] MEDS: THIAMINE HCL 100MG TABLET PO SCH (08:48)
[2022-06-22] MEDS: HYDRALAZINE HCL 50MG TABLET PO SCH ×2 (08:48→21:16)
[2022-06-22] MEDS: AMLODIPINE 10MG TABLET PO SCH (08:48)
[2022-06-22 10:02] LABS: CHLORIDE 101 mEq/L (98-107)
[2022-06-22 12:00] VITALS: BP 137/88
[2022-06-22] MEDS: VANCOMYCIN 750MG PREMIX 150 ML IV SCH ×2 (14:23→22:40)
[2022-06-22 16:00] VITALS: BP 156/102
[2022-06-22 20:00] VITALS: BP 165/104
[2022-06-23] VITALS: BP 149/91
[2022-06-23] MEDS: METHYLPREDNISOLONE SOD SUCC 40 MG/ML VIAL IV SCH ×2 (00:26→11:32)
[2022-06-23] MEDS: CEFTRIAXONE 1,000 MG in DEXTROSE 5% WATER 50 ML IV SCH (00:26)
[2022-06-23] MEDS: IPRATROPIUM/ALBUTEROL 0.5-3(2.5)MG/3ML NEB HHN SCH ×6 (00:41→23:40)
[2022-06-23] MEDS: LORAZEPAM 2MG/ML CPJ IV PRN ×2 (01:24→21:21)
[2022-06-23] MEDS: GUAIFENESIN/DM 600MG/30MG ER TAB 12HR PO PRN (03:58)
[2022-06-23 04:00] VITALS: BP 168/97
[2022-06-23 08:00] VITALS: BP 150/83
[2022-06-23 08:08] LABS: HEMATOCRIT. 26.7 % (36.0-48.0); HEMOGLOBIN. 9.3 g/dL (12.0-16.0); MEAN CORPUSCULAR HEMOGLOBIN 31.3 pg (28.0-32.0); MEAN CORPUSCULAR VOLUME 89.7 fL (81.0-99.0); MEAN PLATELET VOLUME 7.8 fl (7.4-10.4); PLATELET 411 x1000/uL (130-400); RED BLOOD CELL COUNT 2.98 mill/uL (4.2-5.4); RED CELL DISTRIBUTION WIDTH 17.1 % (11.6-14.6)
[2022-06-23] MEDS: VANCOMYCIN 750MG PREMIX 150 ML IV SCH ×2 (08:41→21:21)
[2022-06-23] MEDS: THIAMINE HCL 100MG TABLET PO SCH (08:41)
[2022-06-23] MEDS: AMLODIPINE 10MG TABLET PO SCH (08:41)
[2022-06-23] MEDS: DOCUSATE SODIUM 250MG CAPSULE PO SCH ×2 (08:41→17:03)
[2022-06-23] MEDS: HYDRALAZINE HCL 50MG TABLET PO SCH ×2 (08:41→21:23)
[2022-06-23] MEDS: PANTOPRAZOLE SODIUM 40 MG/VIAL IV SCH (08:41)
[2022-06-23 10:43] LABS: CHLORIDE 99 mEq/L (98-107)
[2022-06-23 12:00] VITALS: BP 121/73
[2022-06-23] MEDS ORDERED: MAGNESIUM HYDROXIDE 400MG/5ML 30ML UDC PO NR (14:15)
[2022-06-23] MEDS: METOCLOPRAMIDE HCL 10MG/2ML VIAL IV SCH ×2 (14:22→17:03)
[2022-06-23 16:00] VITALS: BP 148/84
[2022-06-23 16:40] LABS: PLATELET ESTIMATE INCREASED
[2022-06-23] MEDS ORDERED: CLONIDINE 0.1MG TABLET PO PRN (18:30)
[2022-06-23 20:00] VITALS: BP 133/83
[2022-06-23] MEDS: ZOLPIDEM TARTRATE 5MG TABLET PO PRN (21:22)
[2022-06-24] VITALS: BP 136/80
[2022-06-24] MEDS: METOCLOPRAMIDE HCL 10MG/2ML VIAL IV SCH ×4 (00:58→17:02)
[2022-06-24] MEDS: METHYLPREDNISOLONE SOD SUCC 40 MG/ML VIAL IV SCH ×2 (00:59→13:00)
[2022-06-24] MEDS: CEFTRIAXONE 1,000 MG in DEXTROSE 5% WATER 50 ML IV SCH (00:59)
[2022-06-24 04:00] VITALS: BP 135/71
[2022-06-24] MEDS: IPRATROPIUM/ALBUTEROL 0.5-3(2.5)MG/3ML NEB HHN SCH ×6 (04:50→18:48)
[2022-06-24 08:00] VITALS: BP 136/90
[2022-06-24] MEDS: PANTOPRAZOLE SODIUM 40 MG/VIAL IV SCH (08:17)
[2022-06-24] MEDS: POLYETHYLENE GLYCOL 3350 (17GM) 1 DOSE PACK PO SCH (08:17)
[2022-06-24] MEDS: VANCOMYCIN 750MG PREMIX 150 ML IV SCH ×2 (08:17→20:31)
[2022-06-24] MEDS: THIAMINE HCL 100MG TABLET PO SCH (08:18)
[2022-06-24] MEDS: AMLODIPINE 10MG TABLET PO SCH (08:18)
[2022-06-24] MEDS: DOCUSATE SODIUM 250MG CAPSULE PO SCH ×2 (08:18→16:51)
[2022-06-24] MEDS: HYDRALAZINE HCL 50MG TABLET PO SCH ×2 (08:18→20:28)
[2022-06-24 08:36] LABS: HEMATOCRIT. 27.2 % (36.0-48.0); HEMOGLOBIN. 9.4 g/dL (12.0-16.0); MEAN CORPUSCULAR HEMOGLOBIN 30.7 pg (28.0-32.0); MEAN CORPUSCULAR VOLUME 88.9 fL (81.0-99.0); PLATELET 404 x1000/uL (130-400); RED BLOOD CELL COUNT 3.05 mill/uL (4.2-5.4); RED CELL DISTRIBUTION WIDTH 17.4 % (11.6-14.6)
[2022-06-24 10:36] LABS: CHLORIDE 101 mEq/L (98-107)
[2022-06-24 12:00] VITALS: BP 116/71
[2022-06-24 13:08] LABS: PLATELET ESTIMATE NORMAL
[2022-06-24 16:00] VITALS: BP 155/92
[2022-06-24] MEDS ORDERED: TERBUTALINE SULFATE 1MG/ML VIAL SUBCUT NR (16:00)
[2022-06-24 20:00] VITALS: BP 112/60
[2022-06-24] MEDS: LORAZEPAM 2MG/ML CPJ IV PRN (20:32)
[2022-06-25] VITALS: BP 120/70
[2022-06-25] MEDS: METOCLOPRAMIDE HCL 10MG/2ML VIAL IV SCH ×4 (00:45→17:24)
[2022-06-25] MEDS: CEFTRIAXONE 1,000 MG in DEXTROSE 5% WATER 50 ML IV SCH (00:45)
[2022-06-25] MEDS: METHYLPREDNISOLONE SOD SUCC 40 MG/ML VIAL IV SCH ×2 (00:45→11:37)
[2022-06-25] MEDS: IPRATROPIUM/ALBUTEROL 0.5-3(2.5)MG/3ML NEB HHN SCH ×7 (00:46→20:03)
[2022-06-25 04:23] VITALS: BP 121/83
[2022-06-25 08:00] VITALS: BP 145/89
[2022-06-25] MEDS: POLYETHYLENE GLYCOL 3350 (17GM) 1 DOSE PACK PO SCH (08:28)
[2022-06-25] MEDS: VANCOMYCIN 750MG PREMIX 150 ML IV SCH (08:28)
[2022-06-25] MEDS: PANTOPRAZOLE SODIUM 40 MG/VIAL IV SCH (08:28)
[2022-06-25] MEDS: HYDRALAZINE HCL 50MG TABLET PO SCH ×2 (08:29→22:16)
[2022-06-25] MEDS: AMLODIPINE 10MG TABLET PO SCH (08:29)
[2022-06-25] MEDS: THIAMINE HCL 100MG TABLET PO SCH (08:29)
[2022-06-25] MEDS: DOCUSATE SODIUM 250MG CAPSULE PO SCH ×2 (08:29→17:24)
[2022-06-25 10:22] LABS: EOSINOPHILS % 0.1 % (0.0-5.0); HEMATOCRIT. 26.7 % (36.0-48.0); HEMOGLOBIN. 9.2 g/dL (12.0-16.0); LYMPHOCYTES % 9.4 % (20.0-50.0); MEAN CORPUSCULAR HEMOGLOBIN 30.7 pg (28.0-32.0); MEAN CORPUSCULAR VOLUME 89.1 fL (81.0-99.0); MONOCYTES % 4.5 % (2.0-8.0); PLATELET 446 x1000/uL (130-400); RED BLOOD CELL COUNT 2.99 mill/uL (4.2-5.4); RED CELL DISTRIBUTION WIDTH 17.6 % (11.6-14.6)
[2022-06-25 10:28] LABS: CHLORIDE 99 mEq/L (98-107)
[2022-06-25 12:00] VITALS: BP 128/84
[2022-06-25 16:00] VITALS: BP 136/81
[2022-06-25] MEDS: LORAZEPAM 2MG/ML CPJ IV PRN (17:24)
[2022-06-25 20:00] VITALS: BP 144/88
[2022-06-26] VITALS: BP 134/76
[2022-06-26] MEDS: METHYLPREDNISOLONE SOD SUCC 40 MG/ML VIAL IV SCH ×2 (00:10→11:54)
[2022-06-26] MEDS: METOCLOPRAMIDE HCL 10MG/2ML VIAL IV SCH ×5 (00:10→23:35)
[2022-06-26] MEDS: IPRATROPIUM/ALBUTEROL 0.5-3(2.5)MG/3ML NEB HHN SCH ×7 (00:50→23:54)
[2022-06-26 04:00] VITALS: BP 129/72
[2022-06-26 07:43] LABS: HEMATOCRIT. 29.7 % (36.0-48.0); HEMOGLOBIN. 10.3 g/dL (12.0-16.0); MEAN CORPUSCULAR HEMOGLOBIN 30.8 pg (28.0-32.0); MEAN PLATELET VOLUME 8.6 fl (7.4-10.4); PLATELET 541 x1000/uL (130-400); RED BLOOD CELL COUNT 3.34 mill/uL (4.2-5.4); RED CELL DISTRIBUTION WIDTH 17.6 % (11.6-14.6)
[2022-06-26 08:00] VITALS: BP 162/76
[2022-06-26] MEDS: PANTOPRAZOLE SODIUM 40 MG/VIAL IV SCH (08:48)
[2022-06-26] MEDS: THIAMINE HCL 100MG TABLET PO SCH (08:48)
[2022-06-26] MEDS: HYDRALAZINE HCL 50MG TABLET PO SCH ×2 (08:49→21:00)
[2022-06-26] MEDS: AMLODIPINE 10MG TABLET PO SCH (08:49)
[2022-06-26] MEDS: DOCUSATE SODIUM 250MG CAPSULE PO SCH ×2 (08:49→17:01)
[2022-06-26] MEDS ORDERED: POLYETHYLENE GLYCOL 3350 (17GM) 1 DOSE PACK PO PRN (09:00)
[2022-06-26 10:43] LABS: PLATELET ESTIMATE INCREASED
[2022-06-26 10:55] LABS: CHLORIDE 99 mEq/L (98-107)
[2022-06-26 12:00] VITALS: BP 114/73
[2022-06-26 16:00] VITALS: BP 120/71
[2022-06-26 20:00] VITALS: BP 150/90
[2022-06-26] MEDS: LORAZEPAM 2MG/ML CPJ IV PRN ×3 (22:03→23:22)
[2022-06-27] MEDS: IPRATROPIUM/ALBUTEROL 0.5-3(2.5)MG/3ML NEB HHN SCH ×4 (04:19→20:12)
[2022-06-27] MEDS: LORAZEPAM 2MG/ML CPJ IV PRN (04:52)
[2022-06-27] MEDS: METOCLOPRAMIDE HCL 10MG/2ML VIAL IV SCH ×3 (05:57→18:00)
[2022-06-27 07:13] LABS: BASOPHILS % 0.2 % (0.0-2.0); EOSINOPHILS % 0.7 % (0.0-5.0); HEMATOCRIT. 28.5 % (36.0-48.0); MEAN CORPUSCULAR HEMOGLOBIN 31.2 pg (28.0-32.0); MEAN CORPUSCULAR VOLUME 89.2 fL (81.0-99.0); MEAN PLATELET VOLUME 7.7 fl (7.4-10.4); MONOCYTES % 5.7 % (2.0-8.0); NEUTROPHILS % 82.4 % (40.0-76.0); PLATELET 555 x1000/uL (130-400); RED CELL DISTRIBUTION WIDTH 17.1 % (11.6-14.6)
[2022-06-27] MEDS ORDERED: PREDNISONE 20MG TABLET PO SCH (07:40)
[2022-06-27 07:48] LABS: CHLORIDE 99 mEq/L (98-107)
[2022-06-27 07:56] VITALS: BP 136/88
[2022-06-27] MEDS: DOCUSATE SODIUM 250MG CAPSULE PO SCH ×2 (08:49→17:44)
[2022-06-27] MEDS: HYDRALAZINE HCL 50MG TABLET PO SCH ×2 (08:50→20:42)
[2022-06-27] MEDS: AMLODIPINE 10MG TABLET PO SCH (08:50)
[2022-06-27] MEDS: THIAMINE HCL 100MG TABLET PO SCH (08:50)
[2022-06-27] MEDS: PANTOPRAZOLE SODIUM 40 MG/VIAL IV SCH (09:01)
[2022-06-27 12:00] VITALS: BP 133/81
[2022-06-27] MEDS ORDERED: POTASSIUM CHLORIDE 20MEQ TABLET SR PO NR (12:15)
[2022-06-27 16:00] VITALS: BP 96/69
[2022-06-27 20:00] VITALS: BP 120/79
[2022-06-28] VITALS (7 sets, daily range): BP systolic 101–134; BP diastolic 62–85
[2022-06-28] MEDS: IPRATROPIUM/ALBUTEROL 0.5-3(2.5)MG/3ML NEB HHN SCH ×6 (00:09→21:00)
[2022-06-28] MEDS: ACETAMINOPHEN 325MG TABLET PO PRN ×2 (02:03→15:54)
[2022-06-28] MEDS: ZOLPIDEM TARTRATE 5MG TABLET PO PRN (02:05)
[2022-06-28] MEDS: METOCLOPRAMIDE HCL 10MG/2ML VIAL IV SCH ×5 (02:05→23:20)
[2022-06-28] MEDS: PANTOPRAZOLE SODIUM 40 MG/VIAL IV SCH (08:44)
[2022-06-28] MEDS: THIAMINE HCL 100MG TABLET PO SCH (08:44)
[2022-06-28] MEDS: HYDRALAZINE HCL 50MG TABLET PO SCH ×2 (08:44→20:09)
[2022-06-28] MEDS: DOCUSATE SODIUM 250MG CAPSULE PO SCH ×2 (08:44→18:23)
[2022-06-28] MEDS: AMLODIPINE 10MG TABLET PO SCH (08:45)
[2022-06-28] MEDS: PREDNISONE 20MG TABLET PO SCH (08:45)
[2022-06-29] MEDS: IPRATROPIUM/ALBUTEROL 0.5-3(2.5)MG/3ML NEB HHN SCH ×5 (00:14→21:15)
[2022-06-29] MEDS: ACETAMINOPHEN 325MG TABLET PO PRN (02:13)
[2022-06-29 04:00] VITALS: BP 100/71
[2022-06-29] MEDS: LORAZEPAM 2MG/ML CPJ IV PRN (04:11)
[2022-06-29] MEDS: METOCLOPRAMIDE HCL 10MG/2ML VIAL IV SCH ×4 (05:24→23:23)
[2022-06-29 08:00] VITALS: BP 112/67
[2022-06-29] MEDS: THIAMINE HCL 100MG TABLET PO SCH (10:53)
[2022-06-29] MEDS: PANTOPRAZOLE SODIUM 40 MG/VIAL IV SCH (10:53)
[2022-06-29] MEDS: HYDRALAZINE HCL 50MG TABLET PO SCH ×2 (10:54→20:13)
[2022-06-29] MEDS: AMLODIPINE 10MG TABLET PO SCH (10:54)
[2022-06-29] MEDS: PREDNISONE 20MG TABLET PO SCH (10:55)
[2022-06-29] MEDS: DOCUSATE SODIUM 250MG CAPSULE PO SCH ×2 (10:56→17:03)
[2022-06-29] MEDS: POTASSIUM CHLORIDE 10MEQ TABLET SR PO SCH (11:02)
[2022-06-29 12:00] VITALS: BP 112/67
[2022-06-29 16:00] VITALS: BP 112/67
[2022-06-29 20:00] VITALS: BP 107/73
[2022-06-30] VITALS: BP 108/64
[2022-06-30] MEDS: ACETAMINOPHEN 325MG TABLET PO PRN (00:34)
[2022-06-30] MEDS: LORAZEPAM 2MG/ML CPJ IV PRN (00:49)
[2022-06-30] MEDS: IPRATROPIUM/ALBUTEROL 0.5-3(2.5)MG/3ML NEB HHN SCH ×6 (00:55→21:15)
[2022-06-30 04:00] VITALS: BP 113/77
[2022-06-30] MEDS: METOCLOPRAMIDE HCL 10MG/2ML VIAL IV SCH ×3 (05:06→17:17)
[2022-06-30 07:17] LABS: BASOPHILS % 0.6 % (0.0-2.0); HEMATOCRIT. 24.6 % (36.0-48.0); HEMOGLOBIN. 8.5 g/dL (12.0-16.0); LYMPHOCYTES % 17.1 % (20.0-50.0); MEAN CORPUSCULAR HEMOGLOBIN 30.6 pg (28.0-32.0); MEAN CORPUSCULAR VOLUME 88.9 fL (81.0-99.0); MEAN PLATELET VOLUME 8.3 fl (7.4-10.4); MONOCYTES % 5.8 % (2.0-8.0); NEUTROPHILS % 72.5 % (40.0-76.0); PLATELET 528 x1000/uL (130-400); RED BLOOD CELL COUNT 2.77 mill/uL (4.2-5.4)
[2022-06-30 08:00] VITALS: BP 115/70
[2022-06-30] MEDS: PANTOPRAZOLE SODIUM 40 MG/VIAL IV SCH (08:16)
[2022-06-30] MEDS: HYDRALAZINE HCL 50MG TABLET PO SCH ×2 (08:17→21:19)
[2022-06-30] MEDS: DOCUSATE SODIUM 250MG CAPSULE PO SCH ×2 (08:17→17:17)
[2022-06-30] MEDS: POTASSIUM CHLORIDE 10MEQ TABLET SR PO SCH (08:17)
[2022-06-30] MEDS: THIAMINE HCL 100MG TABLET PO SCH (08:17)
[2022-06-30] MEDS: GUAIFENESIN/DM 600MG/30MG ER TAB 12HR PO PRN (08:17)
[2022-06-30] MEDS: PREDNISONE 20MG TABLET PO SCH (08:17)
[2022-06-30] MEDS: AMLODIPINE 10MG TABLET PO SCH (08:19)
[2022-06-30 08:20] LABS: CHLORIDE 104 mEq/L (98-107)
[2022-06-30 12:00] VITALS: BP 110/70
[2022-06-30 16:00] VITALS: BP 111/67
[2022-06-30 20:00] VITALS: BP 119/71
[2022-06-30 22:16] LABS: HEMATOCRIT 25.6 % (36.0-48.0); HEMOGLOBIN 8.8 g/dL (12.0-16.0)
[2022-07-01] MEDS: ACETAMINOPHEN 325MG TABLET PO PRN ×3 (00:07→20:38)
[2022-07-01] MEDS: METOCLOPRAMIDE HCL 10MG/2ML VIAL IV SCH ×4 (00:10→17:15)
[2022-07-01] MEDS: IPRATROPIUM/ALBUTEROL 0.5-3(2.5)MG/3ML NEB HHN SCH ×6 (00:51→20:56)
[2022-07-01 07:06] LABS: BASOPHILS % 0.4 % (0.0-2.0); EOSINOPHILS % 3.8 % (0.0-5.0); HEMATOCRIT. 24.3 % (36.0-48.0); HEMOGLOBIN. 8.6 g/dL (12.0-16.0); LYMPHOCYTES % 16.5 % (20.0-50.0); MEAN CORPUSCULAR HEMOGLOBIN 31.5 pg (28.0-32.0); MEAN CORPUSCULAR VOLUME 89.2 fL (81.0-99.0); MEAN PLATELET VOLUME 7.9 fl (7.4-10.4); MONOCYTES % 5.9 % (2.0-8.0); NEUTROPHILS % 73.4 % (40.0-76.0); PLATELET 532 x1000/uL (130-400); RED BLOOD CELL COUNT 2.73 mill/uL (4.2-5.4); RED CELL DISTRIBUTION WIDTH 16.6 % (11.6-14.6)
[2022-07-01 08:00] VITALS: BP 147/86
[2022-07-01 08:44] LABS: CHLORIDE 101 mEq/L (98-107)
[2022-07-01] MEDS: PREDNISONE 20MG TABLET PO SCH (08:57)
[2022-07-01] MEDS: HYDRALAZINE HCL 50MG TABLET PO SCH ×2 (08:57→21:00)
[2022-07-01] MEDS: DOCUSATE SODIUM 250MG CAPSULE PO SCH ×2 (08:57→17:15)
[2022-07-01] MEDS: THIAMINE HCL 100MG TABLET PO SCH (08:57)
[2022-07-01] MEDS: POTASSIUM CHLORIDE 10MEQ TABLET SR PO SCH (08:57)
[2022-07-01] MEDS: AMLODIPINE 10MG TABLET PO SCH (08:58)
[2022-07-01] MEDS: PANTOPRAZOLE SODIUM 40 MG/VIAL IV SCH (08:58)
[2022-07-01 12:00] VITALS: BP 114/71
[2022-07-01 16:00] VITALS: BP 112/65
[2022-07-01 20:00] VITALS: BP 111/68
[2022-07-02] MEDS: IPRATROPIUM/ALBUTEROL 0.5-3(2.5)MG/3ML NEB HHN SCH ×3 (00:19→09:23)
[2022-07-02] MEDS: METOCLOPRAMIDE HCL 10MG/2ML VIAL IV SCH ×3 (00:38→12:05)
[2022-07-02 04:00] VITALS: BP 137/91
[2022-07-02 06:11] LABS: BASOPHILS % 0.5 % (0.0-2.0); EOSINOPHILS % 2.7 % (0.0-5.0); HEMATOCRIT. 25.5 % (36.0-48.0); LYMPHOCYTES % 17.7 % (20.0-50.0); MEAN CORPUSCULAR HEMOGLOBIN 31.1 pg (28.0-32.0); MEAN CORPUSCULAR VOLUME 88.2 fL (81.0-99.0); MEAN PLATELET VOLUME 7.9 fl (7.4-10.4); MONOCYTES % 6.1 % (2.0-8.0); PLATELET 577 x1000/uL (130-400); RED BLOOD CELL COUNT 2.89 mill/uL (4.2-5.4); RED CELL DISTRIBUTION WIDTH 16.8 % (11.6-14.6)
[2022-07-02] MEDS: ACETAMINOPHEN 325MG TABLET PO PRN (06:56)
[2022-07-02] MEDS ORDERED: PREDNISONE 10MG TABLET PO SCH (07:20)
[2022-07-02 08:00] VITALS: BP 111/73
[2022-07-02] MEDS: AMLODIPINE 10MG TABLET PO SCH (08:11)
[2022-07-02] MEDS: PANTOPRAZOLE SODIUM 40 MG/VIAL IV SCH (08:11)
[2022-07-02] MEDS: THIAMINE HCL 100MG TABLET PO SCH (08:12)
[2022-07-02] MEDS: HYDRALAZINE HCL 50MG TABLET PO SCH (08:13)
[2022-07-02] MEDS: DOCUSATE SODIUM 250MG CAPSULE PO SCH (08:14)
[2022-07-02] MEDS: POTASSIUM CHLORIDE 10MEQ TABLET SR PO SCH (08:50)
[2022-07-02 10:41] LABS: CHLORIDE 102 mEq/L (98-107)
[2022-07-02 10:55] LABS: PHOSPHORUS 5.3 mg/dL (2.5-4.9)
== END 2022-07-02 12:22 | DRG 720 ==
LOC: ER 19:54 → MICUSO 23:28 → MICUNO 06-12 03:13 → 8WST 06-13 14:15 → 6EST 06-30 23:27 → 3WST 07-01 22:47
PROVIDERS: ADMIT Internal Medicine; ATTEND Internal Medicine
PROC: 4A00X4Z Measurement of Central Nervous Electrical Activity, External Approach (ICD-10-PCS; 2022-06-16)
PROC: 30233N1 Transfusion of Nonautologous Red Blood Cells into Peripheral Vein, Percutaneous Approach (ICD-10-PCS; principal; 2022-06-17)
PROC: 02HV33Z Insertion of Infusion Device into Superior Vena Cava, Percutaneous Approach (ICD-10-PCS; 2022-06-17)
PROC: B5181ZA Fluoroscopy of Superior Vena Cava using Low Osmolar Contrast, Guidance (ICD-10-PCS; 2022-06-17)
PROC: B548ZZA Ultrasonography of Superior Vena Cava, Guidance (ICD-10-PCS; 2022-06-17)
DX: A41.02 Sepsis due to Methicillin resistant Staphylococcus aureus (principal); J96.01 Acute respiratory failure with hypoxia; G92.8 Other toxic encephalopathy; J18.9 Pneumonia, unspecified organism; E87.1 Hypo-osmolality and hyponatremia; E88.09 Other disorders of plasma-protein metabolism, not elsewhere classified; E87.3 Alkalosis; G90.8 Other disorders of autonomic nervous system; Z20.822 Contact with and (suspected) exposure to COVID-19; N39.0 Urinary tract infection, site not specified; I11.9 Hypertensive heart disease without heart failure; E87.6 Hypokalemia; J45.909 Unspecified asthma, uncomplicated; D64.9 Anemia, unspecified; K21.9 Gastro-esophageal reflux disease without esophagitis; K59.00 Constipation, unspecified; E87.70 Fluid overload, unspecified; E78.00 Pure hypercholesterolemia, unspecified; F17.210 Nicotine dependence, cigarettes, uncomplicated; F10.10 Alcohol abuse, uncomplicated; Z88.8 Allergy status to other drugs, medicaments and biological substances; Z79.899 Other long term (current) drug therapy; Z82.49 Family history of ischemic heart disease and other diseases of the circulatory system; Z87.442 Personal history of urinary calculi
CPT/HCPCS: 36415; 36573; 36600; 71045; 71250; 80048; 80053; 80061; 80076; 80202; 80305; 80320; 81003; 82140; 82375; 82533; 82607; 82728; 82746; 82805; 82962; 83540; 83550; 83605; 83735; 83880; 83930; 83935; 84100; 84145; 84300; 84443; 85014; 85018; 85025; 85044; 86850; 86900; 86920; 87070; 87426; 93005; 93970; 94640; 95816; 97110; 97116; 97162; 97530; 97535; 99291; A6261; C1725; C1893; C9113; J0456; J0696; J1650; J1940; J2060; J2597; J2765; J2920; J3105; J3370; J3411; J3475; J3480; J3490; J7030; J7060; J7070; J7512; J7608; P9016; A4315; G0480

== ENCOUNTER 2022-07-07 05:32 | Emergency (ER) | payer MEDICAID ==
[~2022-07-07] VITALS: Ht 170.2 cm; Wt 64.0 kg
[2022-07-07] MEDS ORDERED: KETOROLAC 60MG/2ML VIAL IM ONE (06:00)
[2022-07-07 06:20] LABS: CLARITY URINE CLEAR (CLEAR); COLOR URINE YELLOW (YELLOW); KETONES URINE NEGATIVE (NEGATIVE); LEUKOCYTE ESTERASE URINE 3+ (NEGATIVE); NITRITE URINE NEGATIVE (NEGATIVE); OCCULT BLOOD URINE NEGATIVE (NEGATIVE); PH URINE 5.5 (4.5-8.0); PROTEIN URINE NEGATIVE (NEGATIVE); SPECIFIC GRAVITY URINE 1.005 (1.005-1.030); UROBILINOGEN URINE 0.2 E.U./dL (0.2-1.0)
[2022-07-07 06:23] LABS: HEMATOCRIT. 28.8 % (36.0-48.0); HEMOGLOBIN. 9.7 g/dL (12.0-16.0); MEAN CORPUSCULAR HEMOGLOBIN 29.8 pg (28.0-32.0); PLATELET 483 x1000/uL (130-400); RED BLOOD CELL COUNT 3.27 mill/uL (4.2-5.4); RED CELL DISTRIBUTION WIDTH 16.5 % (11.6-14.6)
[2022-07-07 06:42] LABS: CHLORIDE 103 mEq/L (98-107)
[2022-07-07 07:33] LABS: PLATELET ESTIMATE INCREASED
[2022-07-07] MEDS ORDERED: NAPR-679 MT (07:44)
[2022-07-07] MEDS ORDERED: MAGN400T26 MT (07:44)
[2022-07-07 08:06] VITALS: BP 114/78
== END 2022-07-07 08:15 | disposition home or self-care (01) ==
LOC: ER 05:32
DX: M79.605 Pain in left leg (principal); M79.604 Pain in right leg; N39.0 Urinary tract infection, site not specified; E78.00 Pure hypercholesterolemia, unspecified; J45.909 Unspecified asthma, uncomplicated; I10 Essential (primary) hypertension; Z88.0 Allergy status to penicillin; Z79.899 Other long term (current) drug therapy
CPT/HCPCS: 36415; 80053; 81003; 84550; 85025; 96372; 99283; J1885